=== PATIENT | male | born 1980 | race Caucasian/White ===

== ENCOUNTER 2018-02-12 08:51 | Emergency (ER) | payer SELFPAY ==
[2018-02-12 09:06] VITALS: TEMP 98
--- NOTE | 2018-02-12 09:18 | ED.PDOC ---
History of Present Illness - General Chief Complaint: Eye Problems Stated Complaint: right eye swelling, itching and redness Time Seen by Provider: 02/12/18 09:16 Source: patient Exam Limitations: no limitations - History of Present Illness Initial Comments: Pt has had swelling to R upper eyelid with burning and clear discharge Timing/Duration: gradual, other - 2 days Severity: moderate EENT Location: eye (R) Prearrival Treatment: no prearrival treatment Improving Factors: nothing Worsening Factors: nothing Associated Symptoms: denies symptoms Allergies/Adverse Reactions: Allergies NO KNOWN ALLERGY Allergy (Verified 02/12/18 09:06) Home Medications: Ambulatory Orders Ciprofloxacin HCl (Ophth) [Ciprofloxacin HCl] 0.3 % OP Q4HWA #10 abdelrahman 02/12/18 Sulfa/Trimeth 800/160 (Ds) Tab [Bactrim DS] 1 tablet PO BID #14 tablet 02/12/18 Review of Systems - Review of Systems Constitutional: Denies: chills, fever EENTM: States: eye pain, tearing. Denies: ear pain, nose congestion, throat pain Respiratory: States: no symptoms reported Cardiology: States: no symptoms reported Skin: States: no symptoms reported Endocrine: States: no symptoms reported Hematologic/Lymphatic: States: no symptoms reported Past Medical History (General) - Patient Medical History Hx Hypertension: Yes Surgical History: no surgical history - Vaccination History Hx Influenza Vaccination: No Hx Pneumococcal Vaccination: No - Social History Hx Alcohol Use: Yes - occasional Hx Substance Use: No Family Medical History - Family History Mother Family History: Unknown Physical Exam - Physical Exam General Appearance: Alert, No apparent distress Eye Exam: right other - 1+ edema upperlid with erythema, trace conjunctival erythema Ear Exam: bilateral ear: auricle normal Nasal Exam: normal inspection Throat Exam: pharynx normal Neck: non-tender, full range of motion Skin Exam: normal color, warm/dry Departure - Departure Clinical Impression: Blepharitis of eyelid of right eye Qualifiers: Blepharitis type: unspecified type Eyelid: upper Qualified Code(s): H01.001 - Unspecified blepharitis right upper eyelid Disposition: Discharge to Home or Self Care Departure Forms: ED Discharge - Pt. Copy, Patient Portal Self Enrollment Prescriptions: Ciprofloxacin HCl (Ophth) [Ciprofloxacin HCl] 0.3 % OP Q4HWA #10 abdelrahman Sulfa/Trimeth 800/160 (Ds) Tab [Bactrim DS] 1 tablet PO BID #14 tablet Home Medications: Ambulatory Orders Ciprofloxacin HCl (Ophth) [Ciprofloxacin HCl] 0.3 % OP Q4HWA #10 abdelrahman 02/12/18 Sulfa/Trimeth 800/160 (Ds) Tab [Bactrim DS] 1 tablet PO BID #14 tablet 02/12/18
[2018-02-12 09:31] VITALS: BP 146/96; O2SAT 98
== END 2018-02-12 09:31 | disposition home or self-care (01) ==
LOC: ER 08:51
DX: H01.001 Unspecified blepharitis right upper eyelid (principal); I10 Essential (primary) hypertension

== ENCOUNTER 2018-04-26 08:41 | Emergency (ER) | payer SELFPAY ==
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
[2018-04-26 09:38] VITALS: BP 143/102; TEMP 98.2; O2SAT 99
== END 2018-04-26 09:39 | disposition home or self-care (01) ==
LOC: ER 08:41
DX: S16.1XXA Strain of muscle, fascia and tendon at neck level, initial encounter (principal); I10 Essential (primary) hypertension; V86.59XA Driver of other special all-terrain or other off-road motor vehicle injured in nontraffic accident, initial encounter